=== PATIENT | female | born 1955 | race Caucasian/White ===

== ENCOUNTER 2018-07-09 17:57 | Emergency (ER) | payer BC ==
[2018-07-09] MEDS ORDERED: Tetan/Diph/Pertus SYR(Tdap)* 0.5 ML SYR(BOOSTRIX) use SYR IM ONE (19:05)
[2018-07-09] MEDS ORDERED: Sulfamethox/Trimethoprim DS 800/160* TAB PO ONE (20:41)
--- NOTE | 2018-07-09 21:29 | ED ---
Laceration/Wound HPI - HPI Summary HPI Summary: Patient complains of laceration to volar pad of left thumb while washing removal blade from dye blender. Bleeding controlled. Tetanus status unknown. Denies loss of sensation or function distally. - History of Current Complaint Stated Complaint: LT THUMB CUT Time Seen by Provider: 07/09/18 18:38 Hx Obtained From: Patient Mechanism of Injury: Sharp/Blunt Trauma Onset Severity: Mild Current Severity: Mild Pain Intensity: 1 Pain Scale Used: 0-10 Numeric Associated Signs & Symptoms: Negative - Allergy/Home Medications Allergies/Adverse Reactions: Allergies Allergy/AdvReac Type Severity Reaction Status Date / Time Penicillins Allergy Difficulty Verified 07/09/18 18:11 Breathing PMH/Surg Hx/FS Hx/Imm Hx Endocrine/Hematology History: Denies: Hx Anticoagulant Therapy Cardiovascular History: Denies: Hx Cardiac Arrest History: Denies: Hx Dialysis Neurological History: Denies: Hx CVA - Cancer History Hx Chemotherapy: No Hx Radiation Therapy: No Infectious Disease History: No Infectious Disease History: Denies: Traveled Outside the [place] in Last 30 Days - Social History Alcohol Use: None Substance Use Type: Reports: None Smoking Status (MU): Never Smoked Tobacco Review of Systems Constitutional: Negative Eyes: Negative ENT: Negative Cardiovascular: Negative Respiratory: Negative Gastrointestinal: Negative Genitourinary: Negative Musculoskeletal: Negative Skin: Other Neurological: Negative Psychological: Normal All Other Systems Reviewed And Are Negative: Yes Physical Exam - Summary Physical Exam Summary: Flexion of left thumb intact at each individual joint including DIP, PIP. Mesenteric distally Triage Information Reviewed: Yes Vital Signs On Initial Exam: Initial Vitals Temp Pulse Resp BP Pulse Ox 98.4 F 76 18 141/62 99 07/09/18 18:06 07/09/18 18:06 07/09/18 18:06 07/09/18 18:06 07/09/18 18:06 Vital Signs Reviewed: Yes Appearance: Positive: Well-Appearing Skin: Positive: Warm Head/Face: Positive: Normal Head/Face Inspection Eyes: Positive: Normal Neck: Positive: Supple Respiratory/Lung Sounds: Positive: Clear to Auscultation Cardiovascular: Positive: Normal Abdomen Description: Positive: Nontender Musculoskeletal: Positive: Normal Neurological: Positive: Normal Psychiatric: Positive: Normal AVPU Assessment: Alert - Jb Coma Scale Best Eye Response: 4 - Spontaneous Best Motor Response: 6 - Obeys Commands Best Verbal Response: 5 - Oriented Coma Scale Total: 15 Procedures - Laceration/Wound Repair 1 Location: upper extremity Description: Irregular Anesthesia: Local, 1.0% Length, Depth and Shape: 3.5cm x 1cm Betadine Prep?: No - chlorhexidine prep Irrigated w/ Saline (ccs): 40 - chlorhexidine plus saline Laceration/Wound Explored: clean Debridement: minimal Suture Type: Prolene Number of Sutures: 8 - 4.0 Layer Closure?: No Diagnostics - Vital Signs Vital Signs Temp Pulse Resp BP Pulse Ox 07/09/18 18:06 98.4 F 76 18 141/62 99 - Laboratory Lab Statement: Any lab studies that have been ordered have been reviewed, and results considered in the medical decision making process. Laceration Repair Course/Dx - Course Course Of Treatment: Patient complains of laceration to volar pad of left thumb while washing removal blade from dye blender. Bleeding controlled. Tetanus status unknown. Denies loss of sensation or function distally. Physical exam:Flexion of left thumb intact at each individual joint including DIP, PIP. PMS intact distally. Wound sutured. Started on Bactrim here in the ED. Rx for same. - Clinical Impression Provider Diagnoses: Laceration Discharge - Sign-Out/Discharge Documenting (check all that apply): Patient Departure - Discharge Plan Condition: Stable Disposition: HOME Prescriptions: Sulfamethox/Trimethoprim DS* [Bactrim DS 800/160 TAB*] 1 tab PO BID 5 Days #10 tab Patient Education Materials: Care For Your Stitches (ED), Laceration (ED), Finger Laceration (ED) Referrals: Bud Johnson MD [Primary Care Provider] - Additional Instructions: Sutures out in 10 days. Wash with warm running water and soap. Do not submerge odor bathing or swimming. Take antibiotics as directed. Wound covered when not washing. Return to the ED for any new or worsening symptoms - Billing Disposition and Condition Condition: STABLE Disposition: Home
[2018-07-09 22:07] VITALS: BP 143/78
[2018-07-09] MEDS ORDERED: Ibuprofen TAB* 600 MG PO ONE (22:14)
== END 2018-07-09 22:05 | disposition home or self-care (01) ==
LOC: ED 17:57
DX: S61.012A Laceration without foreign body of left thumb without damage to nail, initial encounter (principal); W29.0XXA Contact with powered kitchen appliance, initial encounter; Y93.G1 Activity, food preparation and clean up; Y92.9 Unspecified place or not applicable; Z88.0 Allergy status to penicillin
CPT/HCPCS: 12002; 90471; 90715; 99282; A9270-GY